=== PATIENT | male | born 1990 | race Caucasian/White ===

== ENCOUNTER 2021-06-30 10:15 | Emergency (ER) | payer OTHER ==
[~2021-06-30] VITALS: Ht 175.3 cm; Wt 93.0 kg
[~2021-06-30 10:15] MED LIST: (None)20 M1 PO; ANTOXYBENA RIGHTEAR; CLON.5 PO; CODACE30 PO; CRUTCH4 USE; HYDACE5 PO; IBUP600 PO; METPHE10 PO; NAPR500 PO; PENVK500 PO; TRAM50 PO; Veetids 500500 MG PO; Zithromax250 MG PO
[2021-06-30 10:52] LABS: BASOPHILS ABSOLUTE AUTO 0.07 K/mm3 (0.00-0.23); BASOPHILS PERCENT AUTO 1 % (0-2); EOSINOPHILS ABSOLUTE AUTO 0.08 K/mm3 (0.00-0.68); EOSINOPHILS PERCENT AUTO 1 % (0-6); Hematocrit 43.6 % (37.0-53.0); Hemoglobin 14.7 g/dL (13.5-17.5); IMMATURE GRAN ABSOLUTE AUTO 0.04 K/mm3 (0.00-0.10); IMMATURE GRAN PERCENT AUTO 0 % (0-1); LYMPHOCYTES ABSOLUTE AUTO 1.07 K/mm3 (0.84-5.20); LYMPHOCYTES PERCENT AUTO 7 % (21-46); MONOCYTES ABSOLUTE AUTO 1.49 K/mm3 (0.16-1.47); MONOCYTES PERCENT AUTO 10 % (4-13); Mean Corpuscular HGB 30.7 pg (26.0-34.0); Mean Corpuscular HGB Conc 33.7 g/dL (31.5-36.5); Mean Corpuscular Volume 91 fL (80-100); Mean Platelet Volume 9.3 fL (9.1-12.4); NEUTROPHILS ABSOLUTE AUTO 12.35 K/mm3 (1.96-9.15); NEUTROPHILS PERCENT AUTO 82 % (41-73); Platelet Count 357 K/mm3 (150-400); RDW Coefficient Variation 12.3 % (11.7-14.2); RDW Standard Deviation 40.8 fL (35.1-46.3); Red Blood Cell Count 4.79 M/mm3 (4.30-5.90)
[2021-06-30 11:17] LABS: Source, Urine Clean Catch
[2021-06-30 11:19] LABS: Albumin, Blood 4.1 g/dL (3.4-5.0); Albumin/Globulin Ratio 1.1 (0.8-1.8); Bilirubin, Total 0.9 mg/dL (0.1-1.0); Bun/Creatinine Ratio 9.9 (12.0-20.0); Calcium, Blood 9.4 mg/dL (8.5-10.1); Creatinine, Blood 1.42 mg/dL (0.60-1.20); Globulin, Blood 3.6 g/dL (2.2-4.0); Total Protein, Blood 7.7 g/dL (6.4-8.2)
[2021-06-30 11:25] LABS: Appearance, Urine Hazy (Clear); Bilirubin, Urine Neg (Neg); Blood, Urine 3+ (Neg); Color, Urine Yellow (P-Yellow); Glucose Qualitative, Urine Neg (Neg); Ketones, Urine Neg (Neg); Leukocyte Esterase, Urine Neg (Neg); Nitrite, Urine Neg (Neg); Protein, Urine Neg (Neg); Urobilinogen, Urine NORM (Normal)
[2021-06-30 11:33] LABS: White Blood Cells, Urine 0-2 /hpf (0-5)
[2021-06-30 11:34] LABS: Bacteria Rare /hpf; Squamous Epithelial Cells Rare /hpf (Few)
[2021-06-30] MEDS ORDERED: ACET500 PO (12:50)
[2021-06-30] MEDS ORDERED: TAMS.4ER PO (12:50)
[2021-06-30] MEDS ORDERED: IBUP400 PO (12:50)
== END 2021-06-30 13:13 | disposition home or self-care (01) ==
LOC: ER 10:15
PROVIDERS: Physician Assistant
DX: N13.2 Hydronephrosis with renal and ureteral calculous obstruction (principal); D72.829 Elevated white blood cell count, unspecified; F17.210 Nicotine dependence, cigarettes, uncomplicated
CPT/HCPCS: 36415; 74176; 80053; 81001; 83690; 85025; 96374; 96375; 99284-25; A9270; J1885; J2405; J7030

== ENCOUNTER 2024-08-18 06:07 | Day surgery (SDC) | payer OTHER ==
[~2024-08-18] VITALS: Ht 175.3 cm; Wt 83.7 kg
[~2024-08-18 06:07] MED LIST changes: +ACET500 PO; +IBUP400 PO; +TAMS.4ER PO
[2024-08-18] MEDS ORDERED: CeFAZolin Sodium 2,000 MG VIAL ONE (06:15)
[2024-08-18] MEDS ORDERED: Lactated Ringer's 1,000 ML IV ONE (06:58)
[2024-08-18] MEDS ORDERED: EPINEPhrine HCl 1 MG/ML 1ML Amp ONE (07:04)
[2024-08-18] MEDS ORDERED: Lidocaine 1%-Epineph 1:200000 30 ML SDV ONE (07:05)
[2024-08-18] MEDS ORDERED: Midazolam HCl 1MG / ML 2ML Vial ONE (07:22)
[2024-08-18] MEDS ORDERED: FentaNYL Citrate 50 MCG/ML 2 ML Injection ONE (07:22)
[2024-08-18] MEDS ORDERED: propofoL 20 ML IV ONE ×2 (07:23→07:37)
--- NOTE | 2024-08-18 07:29 | NUR ---
08/18/24 0712 BABATUNDE DELACRUZ POST OP TEACHING AT BEDSIDE WITH PT AND PARTNER [id number]
[2024-08-18] MEDS ORDERED: Ondansetron HCl 2 MG / ML 2ML Vial ONE (07:34)
[2024-08-18] MEDS ORDERED: Dexamethasone Sod Phos 10 MG/ML 1ML VIAL ONE (07:34)
[2024-08-18] MEDS ORDERED: HYDROmorphone HCl/Pf 1MG SYR ONE ×2 (07:36→08:10)
--- NOTE | 2024-08-18 07:49 | NUR ---
08/18/24 0749 Tammy Thomas 1 MG EPI ADDED TO THE FIRST BAG OF LR FOR IRRIGATION AT [facility].
[2024-08-18 09:01] VITALS: BP 122/89
[2024-08-18] MEDS ORDERED: OxyCODONE HCL 5 MG TAB ONE (09:18)
--- NOTE | 2024-08-18 09:26 | NUR ---
08/18/24 0926 Paula Franco PT C/O PAIN LEVEL AT A 7810. OXYCODONE 5MG GIVEN AT 09. PT STATED THAT HIS TOLERABLE PAIN WOULD BE AT A 2-3/10. PT EDUCATION PROVIDED TO PT REGARDING, MAKING SURE TO EAT A SNACK OR MEAL BEFORE TAKING A PAIN PILL. ALL QUESTIONS WERE ANSWERED, CONCERNS ADDRESSED. VSS, CANDIDO.
== END 2024-08-18 09:49 | disposition home or self-care (01) ==
LOC: ORSCSDS 06:07
PROVIDERS: Orthopaedic Surgery
PROC: 0SBC4ZZ Excision of Right Knee Joint, Percutaneous Endoscopic Approach (ICD-10-PCS; principal; 2024-08-18 07:30)
DX: S83.241A Other tear of medial meniscus, current injury, right knee, initial encounter (principal); W01.0XXA Fall on same level from slipping, tripping and stumbling without subsequent striking against object, initial encounter; F17.210 Nicotine dependence, cigarettes, uncomplicated
CPT/HCPCS: A9270; J0171; J0690; J1100; J1171; J2250; J2405; J2704; J3010

== ENCOUNTER 2025-03-31 16:07 | Emergency (ER) | payer OTHER ==
[~2025-03-31] VITALS: Ht 175.3 cm; Wt 88.5 kg
[2025-03-31 16:48] LABS: BASOPHILS ABSOLUTE AUTO 0.08 K/mm3 (0.00-0.23); BASOPHILS PERCENT AUTO 1 % (0-2); EOSINOPHILS ABSOLUTE AUTO 0.10 K/mm3 (0.00-0.68); EOSINOPHILS PERCENT AUTO 1 % (0-6); Hematocrit 46.5 % (37.0-53.0); Hemoglobin 16.3 g/dL (13.5-17.5); IMMATURE GRAN ABSOLUTE AUTO 0.03 K/mm3 (0.00-0.10); IMMATURE GRAN PERCENT AUTO 0 % (0-1); LYMPHOCYTES ABSOLUTE AUTO 1.30 K/mm3 (0.84-5.20); LYMPHOCYTES PERCENT AUTO 12 % (21-46); MONOCYTES ABSOLUTE AUTO 1.26 K/mm3 (0.16-1.47); MONOCYTES PERCENT AUTO 12 % (4-13); Mean Corpuscular HGB Conc 35.1 g/dL (31.5-36.5); Mean Corpuscular Volume 87 fL (80-100); NEUTROPHILS ABSOLUTE AUTO 7.87 K/mm3 (1.96-9.15); NEUTROPHILS PERCENT AUTO 74 % (41-73); NRBC ABSOLUTE 0.00 K/mm3 (0.00-0.02); NRBC Auto 0.0 /100 WBC (0.0-0.2); Platelet Count 240 K/mm3 (150-400); RDW Coefficient Variation 12.0 % (11.7-14.2); RDW Standard Deviation 38.5 fL (35.1-46.3)
[2025-03-31 17:07] LABS: Alanine Aminotransfer (ALT/SGP 45.0 U/L (12-78); Albumin, Blood 4.1 g/dL (3.4-5.0); Albumin/Globulin Ratio 1.0 (0.8-1.8); Anion Gap 10.0 mmol/L (3-11); Aspartate Aminotrans (AST/SGOT 35.0 U/L (12-37); Bilirubin, Total 0.8 mg/dL (0.1-1.0); Blood Urea Nitrogen 11.0 mg/dL (8-24); CO2, Blood 25.0 mmol/L (21-32); Calcium, Blood 9.2 mg/dL (8.5-10.1); Chloride, Blood 98.0 mmol/L (98-108); Creatinine, Blood 1.04 mg/dL (0.60-1.20); Globulin, Blood 4.2 g/dL (2.2-4.0); Glucose, Blood 100.0 mg/dL (70-99); Potassium, Blood 3.6 mmol/L (3.5-5.5); Sodium, Blood 129.0 mmol/L (136-145); Total Protein, Blood 8.3 g/dL (6.4-8.2)
[2025-03-31 21:55] VITALS: BP 167/86
== END 2025-03-31 22:12 | disposition home or self-care (01) ==
LOC: ER 16:07
PROVIDERS: Emergency Medicine
DX: B34.9 Viral infection, unspecified (principal); R21 Rash and other nonspecific skin eruption; F17.210 Nicotine dependence, cigarettes, uncomplicated; Z79.899 Other long term (current) drug therapy
CPT/HCPCS: 80053; 85025; 86308